=== PATIENT | female | born 1960 | race Caucasian/White ===

== ENCOUNTER → 2021-10-22 | Emergency (ER) | payer MEDICAID ==
[~2021-10-22] VITALS: Ht 162.6 cm; Wt 70.3 kg
[~2021-10-22] MED LIST: MECL-159 PO; MECLIZINE HCL 12.5 MG TABLET ONE; MECLIZINE HCL 12.5 MG TABLET PO ONE
--- NOTE | 2021-10-22 20:00 | NUR ---
BIBHUSBAND C/O FEELING DIZZY STARTING SUNDAY NIGHT, WHEN WAKING UP. PT AWAKE AND ALERT BREATHING EVEN AND UNLABORED.CHANGED INTO GOWN AND PLACED ON MONITOR AND PULSE OX AND V/S WNL.
--- NOTE | 2021-10-22 20:16 | NUR ---
IV LINE ESTABLISHED AT RAC 20G, BLOOD DRAWN AND SENT TO LAB
--- NOTE | 2021-10-22 20:16 | NUR ---
EMT AT BEDSIDE FOR EKG
[2021-10-22 20:37] LABS: BASOPHILS # (AUTO) 0.1 K/uL (0.0-0.2); BASOPHILS % (AUTO) 0.6 % (0.0-2.0); EOSINOPHILS % (AUTO) 0.5 % (0.0-6.0); HEMATOCRIT 41 % (33-45); HEMOGLOBIN 13.8 g/dL (11.5-14.8); LYMPHOCYTES % (AUTO) 8.9 % (20.0-44.0); MEAN CORPUSCULAR HGB CONC 34 g/dl (31.0-36.0); MEAN CORPUSCULAR VOLUME 83 fL (82-100); MONOCYTES # (AUTO) 0.5 K/uL (0.1-1.30); MONOCYTES % (AUTO) 4.7 % (2.0-12.0); NEUTROPHILS # (AUTO) 9.6 K/uL (1.8-8.9); NEUTROPHILS % (AUTO) 85.3 % (43.0-81.0); PLATELET COUNT (AUTO) 245 K/uL (150-450); RED BLOOD CELL COUNT(AUTO) 4.91 MIL/uL (4.0-5.2); WHITE BLOOD COUNT (AUTO) 11.2 K/uL (4.3-11.0)
[2021-10-22 20:53] LABS: CALCIUM, SERUM 9.2 mg/dL (8.5-10.1); CARBON DIOXIDE 27 mmol/L (21-32); CHLORIDE 103 mmol/L (98-107); CREATININE 0.9 mg/dL (0.6-1.3); GLUCOSE 99 mg/dL (74-106); SODIUM SERUM 137 mmol/L (136-145); UREA NITROGEN, BLOOD 14 mg/dL (7-18)
[2021-10-22 21:15] LABS: ALANINE AMINOTRANSFERASE 20 U/L (12-78); ALBUMIN 4.1 g/dL (3.4-5.0); ALKALINE PHOSPHATASE 126 U/L (46-116); ASPARTATE AMINOTRANSFERASE 18 U/L (15-37); BILIRUBIN,DIRECT 0.1 mg/dL (0.0-0.2); BILIRUBIN,TOTAL 0.3 mg/dL (0.2-1.0)
--- NOTE | 2021-10-22 21:40 | NUR ---
DR CARTER AT BEDSIDE
[2021-10-22 21:57] VITALS: BP 186/101
--- NOTE | 2021-10-22 21:57 | NUR ---
Patient discharged to home in stable condition. Written and verbal after care instructions given. Patient verbalizes understanding of instruction. Patient ambulatory with a steady gait
== END | disposition home or self-care (01) ==
LOC: ER 19:44
DX: R42 Dizziness and giddiness (principal); Z60.2 Problems related to living alone; Z79.899 Other long term (current) drug therapy
CPT/HCPCS: 36415; 80048; 80076; 84484; 85025; 93005; 99284; J8597